=== PATIENT | female | born 1980 | race Caucasian/White ===

== ENCOUNTER 2016-08-07 20:20 | Emergency (ER) | payer MEDICAID, OTHER ==
[2016-08-07] MEDS ORDERED: PHENAZOPYRIDINE HCL 100 MG TABLET PO ONE (20:40)
[2016-08-07] MEDS ORDERED: KETOROLAC TROMETHAMINE 60 MG/2 ML VIAL IM ONE ×2 (20:40→20:49)
[2016-08-07] MEDS ORDERED: PHENAZOPYRIDINE HCL 100 MG TABLET ONE (20:49)
[2016-08-07 20:51] LABS: Urine Bilirubin Negative (NEGATIVE); Urine Blood 250 /ul (NEGATIVE); Urine Ketone 5 mg/dL (NEGATIVE); Urine Protein 30 mg/dL (NEGATIVE); Urine Urobilinogen Normal (NORMAL)
--- NOTE | 2016-08-07 20:52 | ERNOTE ---
<Lalita Greenwood - Last Filed: 08/07/16 22:30> ER Female HPI Date of Service: 08/07/16 Stated Complaint: URINARY PAIN Presenting Symptoms: pelvic pain, dysuria, other - L flank Time Seen by Provider: 08/07/16 20:34 Source: patient Exam Limitations: no limitations Immunizations: IMMUNIZATION HX Immunizations Up to Date Yes History of Influenza Vaccine No Allergies/Adverse Reactions: Allergies No Known Allergies Allergy (Verified 08/07/16 20:32) Home Medications: HOME MEDICATIONS Cholecalciferol (Vitamin D3) [Vitamin D3] 2,000 unit PO DAILY 08/25/12 [Last Taken Unknown] Calcium Carbonate [Calcium] 500 mg PO BID 05/18/13 [Last Taken Unknown] lamoTRIgine [Lamictal] 300 mg PO DAILY 05/18/13 [Last Taken Unknown] Ciprofloxacin HCl [Cipro] 500 mg PO BID #20 tab 08/07/16 [Last Taken Unknown] LORazepam [Ativan] 0.5 mg PO TID PRN 08/07/16 [Last Taken Unknown] Mv,Calcium,Min/Iron/Folic/Vitk [Essential Woman Tablet] 1 each PO DAILY [Last Taken Unknown] - History of Present Illness Narrative: Pt. comes in with c/o dysuria with L suprapubic pain and L flank pain for 10 hours. Pt. denies any SOB, CP, NVD, fever, alleviating factors, aggravating factors or prehospital treatment. Review of Systems - Review of Systems Constitutional: Present: no symptoms reported. Absent: recent illness, fever, chills, fatigue, malaise EYE: Present: no symptoms reported ENT: Present: no symptoms reported Respiratory: Present: no symptoms reported. Absent: shortness of breath, cough , wheezing Cardiology: Present: no symptoms reported. Absent: chest pain, palpitations, edema Gastrointestinal/Abdominal: Present: abdominal pain - LLQ. Absent: nausea, vomiting, diarrhea Genitourinary: Present: no symptoms reported. Absent: frequency, decreased urinary output Musculoskeletal: Present: back pain - L flank. Absent: joint pain Skin: Present: no symptoms reported. Absent: rash, change in hair/nails Neurological: Present: no symptoms reported. Absent: headache, dizziness/light- headedness, numbness, tingling All Other Systems: All systems neg except as marked - Patient's Past Medical History Patient History - Medical: Anxiety, Arthritis Patient History - Cardiac/Respiratory: Asthma Patient History - Cancer: Thyroid, Radiation Therapy, Surgical Treatment Patient History - Surgical Procedures: Gastric Bypass, Other LMP (females 10-50): 1 month - Social History Living Situations: home Psych History: Hx of Anxiety Smoking Status: Former smoker Alcohol Use: none - Immunizations Immunizations Up to Date: Yes History of Influenza Vaccine: No Physical Exam - Physical Exam General Appearance: Present: wd/wn, alert, no apparent distress Eye Exam: Normal inspection: bilateral, PERRL: bilateral, EOMI: bilateral Respiratory: Present: no respiratory distress, normal breath sounds, no accessory muscle use, chest nontender, lungs clear Cardiovascular/Chest: Present: regular rate, rhythm, no murmur, normal peripheral pulses Gastrointestinal/Abdominal: Present: tenderness - LLQ Back Exam: Present: normal range of motion, no vertebral tenderness, CVA tenderness (L) Extremity Exam: Present: normal inspection, non-tender, no edema Neurological Exam: Present: alert, oriented, normal mood/affect, no motor/ sensory deficits Skin Exam: Present: normal color, warm/dry. Absent: pallor, skin rash ED Progress - Vital Signs Patient's Vital Signs:: I have reviewed the patient's vital signs. Vital Signs: Vital Signs 08/07/16 20:26 Temperature 36.8 C Pulse Rate 82 Respiratory 16 Rate Blood Pressure 139/84 O2 Sat by Pulse 97 Oximetry - Progress/Reassessment Chief Complaint: Urinary Tract Problems - Transfer of Care Physician Sign Out: Lalita Greenwood Receiving Physician: Eloisa Noriega Pending Results: CT/MRI results, Labs Expected Disposition: Discharge Departure Clinical Impression: Pyelonephritis - Departure Disposition: Home self-care Condition: Good Instructions: Pyelonephritis, Adult, [id number] Additional Instructions: follow up with your doctor when you get home if you start vomiting and can't keep your medications down or start to get a fever return to the ER Prescriptions: Ciprofloxacin HCl [Cipro] 500 mg PO BID #20 tab <Eloisa Noriega - Last Filed: 08/07/16 23:14> ER Female HPI Immunizations: IMMUNIZATION HX Immunizations Up to Date Yes History of Influenza Vaccine No Physical Exam - Physical Exam General Appearance: Present: wd/wn, alert, no apparent distress ED Progress - Results and Orders Patient's Lab Results:: I have reviewed the patient's lab results. - Vital Signs Patient's Vital Signs:: I have reviewed the patient's vital signs. Vital Signs: Vital Signs 08/07/16 08/07/16 08/07/16 20:26 20:57 21:20 Temperature 36.8 C Pulse Rate 82 59 L 56 L Respiratory 16 Rate Blood Pressure 139/84 144/84 133/85 O2 Sat by Pulse 97 99 98 Oximetry 08/07/16 08/07/16 21:43 22:22 Temperature Pulse Rate 54 L 67 Respiratory 18 Rate Blood Pressure 117/56 116/85 O2 Sat by Pulse 100 98 Oximetry - CT/Ultrasound CT/Ultrasound Narrative: CT abdomen: no renal stone, left periureteral stranding - Progress/Reassessment Progress Note-Subjective: 08/07/16 23:09 discussed results and plan with patient, as no fever, no vomiting will treat with oral medication as outpatient, patient had severe pain on presentation, better now after toradol, no NSAIDs at home due to gastric sleeve surgery
[2016-08-07 21:01] LABS: Urine Appearance Cloudy; Urine Color Yellow; Urine Nitrite Positive (NEGATIVE)
[2016-08-07 21:02] LABS: Urine Bacteria 2+; Urine WBC 25-50 /hpf (0-5)
[2016-08-07 22:39] LABS: Hematocrit 35.4 % (37.0-47.0); Hemoglobin 11.1 gm/dL (12.5-16.0); Mean Cell Volume 78.1 fl (78-100); Mean Corpuscular Hemoglobin 24.5 pg (27-31); Mean Corpuscular Hgb Conc 31.4 g/dl (32-36); Mean Platelet Volume 10.1 fl (6.0-9.5); Neutrophil # 10.2 K/mm3 (1.3-6.0); Neutrophil % 78.5 % (42-75.0); Platelet Count 330 K/mm3 (150-450); Red Blood Count 4.53 M/mm3 (4.2-5.4); Red Cell Distribution Width 14.3 % (11.5-14.0)
[2016-08-07 22:58] LABS: Albumin * 3.4 gm/dl (3.4-5.0); Anion Gap 15.4 mmol/L (6.8-13.8); BUN/Creatinine Ratio 9.4 (9.0-21.6); Bilirubin, Total 0.4 mg/dL (0.0-1.1); Calcium * 8.8 mg/dL (7.9-10.9); Potassium 4.4 mmol/L (3.4-4.6); Total Protein 7.5 gm/dL (6.2-8.2)
[2016-08-07 23:05] VITALS: BP 128/67
[2016-08-07] MEDS ORDERED: CIPROFLOXACIN HCL 250 MG TABLET PO ONE (23:08)
[2016-08-07] MEDS ORDERED: oxyCODONE HCL/ACETAMINOPHEN 1 TAB TABLET PO ONE (23:08)
[2016-08-07] MEDS ORDERED: oxyCODONE HCL/ACETAMINOPHEN 1 TAB TABLET ONE (23:09)
[2016-08-07] MEDS ORDERED: CIPROFLOXACIN HCL 250 MG TABLET ONE (23:09)
== END 2016-08-07 23:18 | disposition home or self-care (01) ==
LOC: ER 20:20
DX: N12 Tubulo-interstitial nephritis, not specified as acute or chronic (principal); Z85.850 Personal history of malignant neoplasm of thyroid